=== PATIENT | female | born 1995 | race Two or more races ===

== ENCOUNTER 2017-04-29 14:27 | Emergency (ER) | payer BC ==
[~2017-04-29] VITALS: Ht 154.9 cm; Wt 54.4 kg
[2017-04-29 14:44] VITALS: BP 114/75
== END 2017-04-29 16:26 | disposition home or self-care (01) ==
LOC: ER 14:30
DX: S40.012A Contusion of left shoulder, initial encounter (principal); H72.92 Unspecified perforation of tympanic membrane, left ear; S09.90XA Unspecified injury of head, initial encounter; V44.6XXA Car passenger injured in collision with heavy transport vehicle or bus in traffic accident, initial encounter; Y93.89 Activity, other specified; Y92.89 Other specified places as the place of occurrence of the external cause; Y99.8 Other external cause status
CPT/HCPCS: 70450

== ENCOUNTER 2019-05-13 10:22 | Emergency (ER) | payer BC ==
[~2019-05-13] VITALS: Ht 154.9 cm; Wt 63.5 kg
[2019-05-13] MEDS ORDERED: cefTRIAXone SOD 1,000 MG VL IM ONE (10:45)
[2019-05-13] MEDS ORDERED: LIDOCAINE 1% HCL (LOCAL ANESTH.) INJ 20ML MDV IJ ONE (10:45)
[2019-05-13 11:01] VITALS: BP 122/89
== END 2019-05-13 11:01 | disposition home or self-care (01) ==
LOC: ER 10:22
DX: L02.31 Cutaneous abscess of buttock (principal)
CPT/HCPCS: 10060; 96372; 99283; J0696; J2001

== ENCOUNTER 2019-05-14 09:28 | Emergency (ER) | payer BC ==
[~2019-05-14] VITALS: Ht 154.9 cm; Wt 63.0 kg
[2019-05-14 09:44] VITALS: BP 106/69
[2019-05-14] MEDS ORDERED: cefTRIAXone W LIDOCAINE 1 GM IM IM ONE (09:45)
[2019-05-14] MEDS ORDERED: cefTRIAXone SOD 1,000 MG VL ONE (09:47)
== END 2019-05-14 09:56 | disposition home or self-care (01) ==
LOC: ER 09:28
DX: L02.31 Cutaneous abscess of buttock (principal)
CPT/HCPCS: 96372; 99283; J0696